=== PATIENT | male | born 1960 | race Caucasian/White ===

== ENCOUNTER 2021-04-28 08:41 | Emergency (ER) | payer OTHER, SELFPAY ==
--- NOTE | 2021-04-28 08:49 | ED.URI ---
HPI - URI/Sore Throat General Chief Complaint: Upper Respiratory Infection Stated Complaint: sore throat Time Seen by Provider: 04/28/21 08:49 Source: patient and RN notes reviewed History of Present Illness HPI Narrative: Patient is a 60-year-old male who presents the urgent care with complaints of a sore throat and body aches. Patient states that it started last night and he woke up with a fever and chills. Patient states that he knows he has strep because he gets it every year . Patient denies of any known exposures to strep, flu or COVID. Patient states he has been COVID vaccinated. Has been taking ibuprofen for his symptoms. No other acute complaints. No acute distress noted. Patient aware of the plan of care. Some parts of this dictation were generated by voice recognition software and may contain typographical and/or grammatical inaccuracies. Related Data Home Medications Medication Instructions Recorded Confirmed allopurinol 100 mg PO DAILY 04/28/21 04/28/21 ezetimibe 10 mg PO DAILY 04/28/21 04/28/21 simvastatin 40 mg PO DAILY 04/28/21 04/28/21 Allergies Allergy/AdvReac Type Severity Reaction Status Date / Time No Known Allergies Allergy Unverified 01/13/17 10:59 Review of Systems Review of Systems: CONSTITUTIONAL: Reports of fever, chills EYES: Denies visual changes, redness, or discharge. ENT: Reports of sore throat CARDIOVASCULAR: Denies chest pain, palpitations, or edema. RESPIRATORY: Denies cough or dyspnea. GASTROINTESTINAL: Denies abdominal pain, nausea, vomiting, or diarrhea. GENITOURINARY: Denies dysuria or hematuria. SKIN: Denies rash or itching. MUSCULOSKELETAL: Denies back pain, joint pain. Reports body aches NEUROLOGIC: Denies headache, numbness, or weakness. All other systems reviewed are negative, except as documented in HPI. PMFSH Comments At the time of my signature, I reviewed and agree with the nursing past medical, surgical, social, and family history. There is no relevant family history pertinent to the patient complaint. Exam Narrative: GENERAL: This is a well-nourished, well-developed patient, in no apparent distress. HEAD: normocephalic, atraumatic. EYES: PERRL. Sclera clear/white. Vision is grossly intact. EARS: External ears normal, auditory canals clear and without drainage, TMs normal without perforation. Hearing grossly intact. NOSE: External nose normal with no obvious nasal discharge, nares without redness, no rhinorrhea. THROAT: Mucous membranes moist. Moderate erythema noted posterior oropharynx with moderate postnasal drainage. NECK: Neck supple CARDIOVASCULAR: Regular rate and rhythm without murmurs, gallops, or rubs. RESPIRATORY: Clear to auscultation. Breath sounds equal bilaterally. No wheezes, rales, or rhonchi. SKIN: warm, intact with no suspicious lesions or rash, good texture and turgor. NEURO: awake, alert, and oriented to person, place and time. There were no obvious focal neurologic abnormalities. EXTREMITIES: No clubbing, cyanosis, or edema. Course Course Level of Care: Express Care Visit Vital Signs Vital signs: Vital Signs Temperature 101.4 F H 04/28/21 09:00 Pulse Rate 121 H 04/28/21 09:00 Respiratory Rate 18 04/28/21 09:00 Blood Pressure 151/95 H 04/28/21 09:00 Pulse Oximetry 97 04/28/21 09:00 Temperature 101.4 F H 04/28/21 09:00 Pulse Rate 121 H 04/28/21 09:00 Respiratory Rate 18 04/28/21 09:00 Blood Pressure 151/95 H 04/28/21 09:00 Pulse Oximetry 97 04/28/21 09:00 Reviewed-patient is informed that they may have pre-hypertension or hypertension based on a blood pressure reading in the department. I recommend the patient call the primary care provider listed on their discharge instructions or a physician of their choice this week to arrange follow-up for further evaluation of possible pre-hypertension or hypertension. MDM - URI/Sore Throat MDM Narrative Medical decision making narrative: Reviewed lab results w
[2021-04-28 09:00] VITALS: BP 151/95; PULSE 121; RESP 18; TEMP 38.6; O2SAT 97
[2021-04-29 21:11] LABS: SARS-CoV-2 RNA PCR Positive
== END 2021-04-28 10:10 | disposition home or self-care (01) ==
PROVIDERS: Emergency Provider Nurse Practitioner Family; PCP Internal Medicine
DX: U07.1 COVID-19 (principal); E78.00 Pure hypercholesterolemia, unspecified; M10.9 Gout, unspecified
CPT/HCPCS: 87081; 87426; 87804; 87880; 99203; C9803; G0463; U0003; U0005

== ENCOUNTER 2022-10-13 11:56 | Emergency (ER) | payer OTHER, SELFPAY ==
[2022-10-13 12:03] VITALS: BP 121/80; PULSE 83; RESP 16; TEMP 36.3; O2SAT 96
--- NOTE | 2022-10-13 12:35 | ED.ABDPAIN ---
HPI - Abdominal Pain General Chief Complaint: Abdominal Pain Stated Complaint: Abdominal Pain Source: patient and RN notes reviewed History of Present Illness HPI narrative: 62 yo M Presents to urgent care with complaints of mid abdominal pain since Tuesday. Pt states he was at work when it started and he was doubled over, having to leave due to the pain. Pt states the pain is improving but still present. Pt reports constipation; last BM was this morning but it was hard and he had not had a BM 3 days prior to that. Denies any N/V, fevers, chills, or dysuria. Related Data Home Medications Medication Instructions Recorded Confirmed allopurinol 100 mg tablet 100 mg PO DAILY 04/28/21 04/28/21 ezetimibe 10 mg tablet 10 mg PO DAILY 04/28/21 04/28/21 simvastatin 40 mg tablet 40 mg PO DAILY 04/28/21 04/28/21 Allergies Allergy/AdvReac Type Severity Reaction Status Date / Time No Known Allergies Allergy Unverified 01/13/17 10:59 Review of Systems Review of Systems: Pertinent positives and pertinent negatives per HPI. PMFSH Comments At the time of my signature, I reviewed and agree with the nursing past medical, surgical, social, and family history. There is no relevant family history pertinent to the patient complaint. Exam Narrative: GENERAL: This is a well-nourished, well-developed patient, in no apparent distress. HEAD: normocephalic, atraumatic. EYES: Sclera clear/white. Vision is grossly intact. EARS: External ears normal, auditory canals clear and without drainage. Hearing grossly intact. NOSE: External nose normal with no obvious nasal discharge, nares without redness, no rhinorrhea. THROAT: Mucous membranes moist, posterior pharynx clear. NECK: Neck supple, non-tender without lymphadenopathy, masses or thyromegaly. CARDIOVASCULAR: Regular rate and rhythm without murmurs, gallops, or rubs. RESPIRATORY: Clear to auscultation. Breath sounds equal bilaterally. No wheezes, rales, or rhonchi. GASTROINTESTINAL: Bowel sounds hypoactive. Abdomen distended, possibly normal anatomy for pt and not acute finding. Mild tenderness right of the umbilicus. SKIN: warm, intact with no suspicious lesions or rash, good texture and turgor. NEURO: awake, alert, and oriented to person, place and time. There were no obvious focal neurologic abnormalities. Course Course Level of Care: Express Care Visit Vital Signs Vital signs: Vital Signs Temperature 97.3 F L 10/13/22 12:03 Pulse Rate 83 10/13/22 12:03 Respiratory Rate 16 10/13/22 12:03 Blood Pressure 121/80 10/13/22 12:03 Pulse Oximetry 96 10/13/22 12:03 Oxygen Delivery Room Air 10/13/22 12:03 Temperature 97.3 F L 10/13/22 12:03 Pulse Rate 83 10/13/22 12:03 Respiratory Rate 16 10/13/22 12:03 Blood Pressure 121/80 10/13/22 12:03 Pulse Oximetry 96 10/13/22 12:03 Oxygen Delivery Room Air 10/13/22 12:03 reviewed. MDM - Abdominal Pain MDM Narrative Medical decision making narrative: Pt agrees to go to [place] [facility] for further evaluation of his abdominal pain. Report called to Nimco Nguyen RN [facility] at [place] [facility] who accepts pt. Pt informed lack of further evaluation could lead to possible furthering illness, disability, and/or . Pt is stable. NAD. VSS. Differential Diagnosis Differential diagnosis: Likely acute appendicitis, diverticulitis and small bowel obstruction Critical Care Time Critical Care Time Critical Care Time: No Discharge Plan Discharge Clinical Impression: Abdominal pain Qualifiers: Abdominal location: generalized Qualified Code(s): R10.84 - Generalized abdominal pain Patient Disposition: Acute Care Hospital Condition: Stable Prescriptions: No Action allopurinol 100 mg tablet 100 mg PO DAILY simvastatin 40 mg tablet 40 mg PO DAILY ezetimibe 10 mg tablet 10 mg PO DAILY Follow-up/Referrals: Annie,MD Niels [Primary Care Provider] -
== END 2022-10-13 12:43 | disposition short-term general hospital (02) ==
PROVIDERS: Emergency Provider Nurse Practitioner Family; PCP Internal Medicine
DX: R10.84 Generalized abdominal pain (principal); E78.00 Pure hypercholesterolemia, unspecified; M10.9 Gout, unspecified
CPT/HCPCS: 99211; 99212; G0463